=== PATIENT | male | born 2000 | race Caucasian/White ===

== ENCOUNTER 2018-08-30 20:40 | Emergency (ER) | payer MEDICAID ==
[~2018-08-30] VITALS: Ht 182.9 cm; Wt 88.5 kg
--- NOTE | 2018-08-30 20:59 | NUR ---
PT STATES LUMP NOTED ON L TESTICLEx3 DAYS W/ ASSOCIATED PAIN. STATES PAIN RADIATES TO LLQ ABD. STATES "I MAY HAVE PUSHED TOO HARD A COUPLE DAYS AGO WHILE POOPING." DENIES ANY FURTHER GI/ SYMPTOMS. PT CHANGING INTO GOWN. GIVEN WARM BLANKET FOR COMFORT. MOTHER AT BEDSIDE. CALL LIGHT WITHIN REACH. AWAITING MD ASSESSMENT.
[2018-08-30] MEDS ORDERED: NAPROXEN 500 MG TABLET ONE (21:13)
[2018-08-30] MEDS ORDERED: NAPROXEN 500 MG TABLET PO ONE (21:30)
[2018-08-30 21:33] LABS: MICROSCOPIC AUTO
--- NOTE | 2018-08-30 21:37 | NUR ---
PT BACK FROM IMAGING. NO IMMEDIATE NEEDS. NADN. MOTHER AT BEDSIDE. CALL LIGHT WITHIN REACH.
[2018-08-30 21:38] LABS: CULTURE INDICATED? YES
[2018-08-30 21:58] VITALS: BP 106/50
== END 2018-08-30 22:35 | disposition home or self-care (01) ==
LOC: ED 21:55
DX: I86.1 Scrotal varices (principal); F17.200 Nicotine dependence, unspecified, uncomplicated
CPT/HCPCS: 76870; 81001; 87086; 87491; 87591; 96372; 99284

== ENCOUNTER 2019-09-26 12:11 | Emergency (ER) | payer SELFPAY ==
[~2019-09-26] VITALS: Ht 177.8 cm; Wt 86.6 kg
--- NOTE | 2019-09-26 15:49 | NUR ---
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
--- NOTE | 2019-09-26 15:56 | NUR ---
PT AMBULATED BACK TO ROOM WITHOUT DIFFICULTY. REPORTS HX OF EPIDIDYMITIS LAST YEAR, STATES IT FEELS THE SAME. ER PA AT BS.
[2019-09-26 16:25] LABS: MICROSCOPIC AUTO
[2019-09-26 16:26] LABS: CULTURE INDICATED? YES
[2019-09-26] MEDS ORDERED: LIDOCAINE-MPF 1%, 5ML ONE (16:49)
[2019-09-26] MEDS ORDERED: CEFTRIAXONE 250 MG ONE (16:49)
[2019-09-26] MEDS ORDERED: CEFTRIAXONE 250 MG IM ONE (17:00)
[2019-09-26 17:02] VITALS: BP 125/78
--- NOTE | 2019-09-26 17:02 | NUR ---
PT MEDICATED PER ORDERS. NO REACTION NOTED. D/C INSTRUCTIONS, MEDS & F/U APPT RV'WD WITH PT, HE VERBALIZES UNDERSTANDING. RX GIVEN X2. PT AMBULATED OUT OF ED WITHOUT DIFFICULTY.
== END 2019-09-26 17:03 | disposition home or self-care (01) ==
LOC: ED 13:11
DX: N45.1 Epididymitis (principal); F17.200 Nicotine dependence, unspecified, uncomplicated
CPT/HCPCS: 76870; 81001; 87086; 93975; 96372; 99285; J0696